=== PATIENT | female | born 1985 | race Two or more races ===

== ENCOUNTER → 2018-06-08 | Outpatient (CLI) | payer BC ==
[2018-06-08 11:06] LABS: Basophils # (auto) 0 uL; Basophils % (auto) 0.7 % (0.0-2.0); Eosinophils # (auto) 0.1 uL; Eosinophils % (auto) 2.2 % (0.0-7.0); Hematocrit 39.2 % (36.0-46.0); Hemoglobin 13.3 g/dL (12.2-16.2); Lymphocytes # (auto) 1.2 uL; Lymphocytes % (auto) 25.3 % (10.0-50.0); Mean Corpuscular Hemoglobin 29.5 pg (28.0-32.0); Mean Corpuscular Hgb Conc. 33.9 g/dL (32.0-36.0); Monocytes # (auto) 0.3 uL; Monocytes % (auto) 5.8 % (0.0-12.0); Neutrophils # (auto) 3.3 uL; Platelet Count (auto) 170 10^3/uL (140-450); Red Blood Cells 4.51 10^6/uL (4.0-5.20); Red Cell Distribution Width 13.4 % (11.8-14.3); White Blood Cell 4.9 10^3/uL (4.4-10.8)
[2018-06-08 11:14] LABS: Urine Bacteria NONE SEEN /hpf (None Seen); Urine Blood Negative /uL (Negative); Urine Mucus FEW (None Seen); Urine Specific Gravity 1.015 (1.001-1.035); Urine WBC 1 /hpf (0 - 5)
[2018-06-08 12:16] LABS: Free T4 (Free Thyroxine) 1.08 ng/dL (0.89-1.76)
[2018-06-08 12:17] LABS: Free T3 3.11 pg/mL (2.3-4.2); T3 Total 1.35 ng/mL (0.60-1.81)
[2018-06-08 12:18] LABS: Folate (Folic Acid) 12.07 ng/mL (5.38-24)
[2018-06-08 12:19] LABS: Albumin 3.9 g/dL (3.4-5.0); BUN/Creatinine Ratio 18.2; Bilirubin, Total 0.2 mg/dL (0.2-1.0); Calcium 8.4 mg/dL (8.5-10.1); Magnesium 2.1 mg/dL (1.6-2.6); Phosphorus 3.3 mg/dL (2.5-4.90); Potassium 4.3 mmol/L (3.5-5.1); Total Protein 7.5 g/dL (6.4-8.2); Uric Acid 3.3 mg/dL (2.6-6.0)
[2018-06-12 08:06] LABS: IgE Mouse Urine <0.10 kU/L (Class 0)
== END | disposition home or self-care (01) ==
LOC: LAB 10:39
DX: Z76.89 Persons encountering health services in other specified circumstances (principal)
CPT/HCPCS: 36415; 80053; 80061; 81001; 82306; 82607; 82746; 82785; 83036; 83735; 84100; 84439; 84443; 84480; 84481; 84550; 85025; 87086

== ENCOUNTER → 2018-07-03 | Outpatient (CLI) | payer BC ==
[2018-07-06 12:07] LABS: IgE Mouse Urine <0.10 kU/L (Class 0)
== END | disposition home or self-care (01) ==
LOC: LAB 14:29
DX: T78.40XA Allergy, unspecified, initial encounter (principal)
CPT/HCPCS: 82785

== ENCOUNTER → 2020-06-10 | Outpatient (CLI) | payer OTHER | END | disposition home or self-care (01) | LOC: LAB 15:21 | PROVIDERS: ATTEND Nurse Practitioner Family | DX: Z20.828 Contact with and (suspected) exposure to other viral communicable diseases (principal) ==

== ENCOUNTER → 2023-06-07 | Outpatient (CLI) | payer BC ==
[2023-06-07 07:27] LABS: Basophils # (auto) 0 10 ^3/uL (0-0.2); Basophils % (auto) 0.5 % (0.0-2.0); Eosinophils # (auto) 0.1 10 ^3/uL (0-0.8); Eosinophils % (auto) 1.3 % (0.0-7.0); Hematocrit 33.5 % (36.0-46.0); Hemoglobin 11.3 g/dL (12.2-16.2); Lymphocytes # (auto) 1.5 10 ^3/uL (0.4-5.4); Lymphocytes % (auto) 18.2 % (10.0-50.0); Mean Corpuscular Hemoglobin 29.4 pg (28.0-32.0); Mean Corpuscular Hgb Conc. 33.8 g/dL (32.0-36.0); Mean Corpuscular Volume 86.9 fL (80.0-100.0); Monocytes # (auto) 0.5 10 ^3/uL (0-1.3); Monocytes % (auto) 6.6 % (0.0-12.0); Neutrophils # (auto) 5.9 10 ^3/uL (1.6-8.6); Neutrophils % (auto) 73.4 % (37.0-80.0); Red Blood Cells 3.85 10^6/uL (4.0-5.20); Red Cell Distribution Width 14.2 % (11.8-14.3)
== END | disposition home or self-care (01) ==
LOC: LAB 07:12
PROVIDERS: ATTEND Obstetrics & Gynecology
DX: Z34.00 Encounter for supervision of normal first pregnancy, unspecified trimester (principal); Z3A.00 Weeks of gestation of pregnancy not specified
CPT/HCPCS: 36415; 82951; 85025; 86850; 86900; 86901

== ENCOUNTER 2023-06-28 09:13 | Observation (INO) | payer BC ==
[~2023-06-28] VITALS: Ht 152.4 cm; Wt 67.6 kg
[2023-06-28] MEDS ORDERED: PREN1TAB71 OR (10:34)
== END 2023-06-28 10:45 | disposition home or self-care (01) ==
LOC: LDRP 09:13 → UNDOADMOB 09:13 → LDRP 09:14 → UNDODISOB 10:45
PROVIDERS: ADMIT Obstetrics & Gynecology; ATTEND Obstetrics & Gynecology
DX: O26.893 Other specified pregnancy related conditions, third trimester (principal); N23 Unspecified renal colic; O09.513 Supervision of elderly primigravida, third trimester; Z3A.32 32 weeks gestation of pregnancy
CPT/HCPCS: 59025; 81002; 94760; G0378

== ENCOUNTER → 2023-07-24 | Outpatient (CLI) | payer BC ==
[~2023-07-24] MED LIST: PREN1TAB71 OR
[2023-07-24 12:07] LABS: Basophils # (auto) 0 10 ^3/uL (0-0.2); Basophils % (auto) 0.3 % (0.0-2.0); Eosinophils # (auto) 0.1 10 ^3/uL (0-0.8); Eosinophils % (auto) 1.3 % (0.0-7.0); Hematocrit 35.4 % (36.0-46.0); Lymphocytes # (auto) 1.1 10 ^3/uL (0.4-5.4); Lymphocytes % (auto) 14.9 % (10.0-50.0); Mean Corpuscular Hgb Conc. 33.9 g/dL (32.0-36.0); Mean Corpuscular Volume 85.5 fL (80.0-100.0); Monocytes # (auto) 0.5 10 ^3/uL (0-1.3); Monocytes % (auto) 6.2 % (0.0-12.0); Neutrophils % (auto) 77.3 % (37.0-80.0); Nucleated Red Blood Cells % 0.1 %; Red Blood Cells 4.14 10^6/uL (4.0-5.20); Red Cell Distribution Width 14.2 % (11.8-14.3); White Blood Cell 7.7 10^3/uL (4.4-10.8)
[2023-07-24 12:26] LABS: Amphetamine Screen, Urine Neg (NEGATIVE)
[2023-07-24 12:28] LABS: Barbiturate Scree,Urine Neg (NEGATIVE); Benzodiazephine Screen, Urine Neg (NEGATIVE); Cocaine Screen, Urine Neg (NEGATIVE); Opiate Scree,Urine Neg (NEGATIVE)
[2023-07-24 12:29] LABS: Cannabinoid Screen, Urine Neg (NEGATIVE); Phencyclidine Screen, Urine Neg (NEGATIVE)
[2023-07-25 07:06] LABS: RPR Non Reactive (Non Reactive)
[2023-07-25 10:06] LABS: Treponema Pallidum Ab LC Non Reactive (Non Reactive)
== END | disposition home or self-care (01) ==
LOC: LAB 11:34
PROVIDERS: ATTEND Obstetrics & Gynecology
DX: Z34.00 Encounter for supervision of normal first pregnancy, unspecified trimester (principal); Z3A.00 Weeks of gestation of pregnancy not specified
CPT/HCPCS: 36415; 80307; 84112; 85025; 86592

== ENCOUNTER → 2023-07-25 | Outpatient (CLI) | payer BC | END | disposition home or self-care (01) | LOC: LAB 15:24 | PROVIDERS: ATTEND Obstetrics & Gynecology | DX: Z34.80 Encounter for supervision of other normal pregnancy, unspecified trimester (principal); Z3A.00 Weeks of gestation of pregnancy not specified | CPT/HCPCS: 87081 ==

== ENCOUNTER 2023-08-15 11:17 | Inpatient (IN) | payer BC ==
[~2023-08-15] VITALS: Ht 152.4 cm; Wt 68.5 kg
[2023-08-15] MEDS ORDERED: PHISODERM TOP SOLN 240ML BTL TOP PRN (11:45)
[2023-08-15] MEDS ORDERED: PROMETHAZINE HCL 25 MG/ML 1ML IM PRN (11:45)
[2023-08-15] MEDS ORDERED: LIDOCAINE 2%HCL (LOCAL ANESTH.) INJ 20ML MDV IJ PRN (11:45)
[2023-08-15] MEDS ORDERED: PROMETHAZINE HCL 25 MG/ML 1ML IV PRN (11:45)
[2023-08-15] MEDS ORDERED: LACT. RINGERS/OXYTOCIN 20UNITS 500 ML IV ONE ×2 (11:45→12:15)
[2023-08-15 12:23] LABS: Urine Bacteria FEW /hpf (None Seen); Urine Blood 1+ /uL (Negative); Urine Clarity HAZY (Clear); Urine Color Yellow (Yellow); Urine Protein, UAD Negative (Negative); Urine Specific Gravity 1.014 (1.001-1.035); Urine Urobilinogen Normal (Negative); Urine WBC 3 /hpf (0 - 5); Urine pH 6.5 (5.0-8.0)
[2023-08-15 12:30] LABS: INR 0.91 (0.9-1.15); Partial Thromboplastin Time 28.9 SEC (24.5-34.5); Prothrombin Time 9.6 sec (9.3-11.8)
[2023-08-15 12:35] LABS: Amphetamine Screen, Urine Neg (NEGATIVE)
[2023-08-15 12:37] LABS: Alanine Aminotransferase 13 U/L (7-40); Alkaline Phosphatase 127 U/L (46-116); Anion Gap 6 (5-15); Aspartate Aminotransferase 15 U/L (13-40); Blood Urea Nitrogen 9 mg/dL (9-23); Calcium 8.3 mg/dL (8.5-10.1); Carbon Dioxide 22 mmol/L (20-30); Chloride 103 mmol/L (98-107); Glucose 72 mg/dL (74-106); Potassium 3.5 mmol/L (3.5-5.1); Sodium 131 mmol/L (136-145)
[2023-08-15 12:37] LABS: Barbiturate Scree,Urine Neg (NEGATIVE); Benzodiazephine Screen, Urine Neg (NEGATIVE); Cannabinoid Screen, Urine Neg (NEGATIVE); Cocaine Screen, Urine Neg (NEGATIVE); Opiate Scree,Urine Neg (NEGATIVE); Phencyclidine Screen, Urine Neg (NEGATIVE)
[2023-08-15 12:38] LABS: Albumin 3.5 g/dL (3.2-4.8); Total Protein 5.6 g/dL (5.7-8.2)
[2023-08-15 12:48] LABS: Basophils # (auto) 0 10 ^3/uL (0-0.2); Basophils % (auto) 0.3 % (0.0-2.0); Eosinophils # (auto) 0.1 10 ^3/uL (0-0.8); Eosinophils % (auto) 0.6 % (0.0-7.0); Hematocrit 33.9 % (36.0-46.0); Hemoglobin 11.5 g/dL (12.2-16.2); Lymphocytes # (auto) 1.5 10 ^3/uL (0.4-5.4); Lymphocytes % (auto) 16.9 % (10.0-50.0); Mean Corpuscular Hemoglobin 29.1 pg (28.0-32.0); Mean Corpuscular Hgb Conc. 33.9 g/dL (32.0-36.0); Mean Corpuscular Volume 85.7 fL (80.0-100.0); Monocytes # (auto) 0.6 10 ^3/uL (0-1.3); Monocytes % (auto) 7.1 % (0.0-12.0); Neutrophils # (auto) 6.8 10 ^3/uL (1.6-8.6); Neutrophils % (auto) 75.1 % (37.0-80.0); Red Blood Cells 3.95 10^6/uL (4.0-5.20); Red Cell Distribution Width 14.5 % (11.8-14.3); White Blood Cell 9.1 10^3/uL (4.4-10.8)
[2023-08-15 13:05] LABS: Bilirubin, Total 0.5 mg/dL (0.2-1.0)
[2023-08-15] MEDS ORDERED: METHYLERGONOVINE MALEATE 0.2 MG/ML AMP IM PRN (14:30)
[2023-08-15] MEDS ORDERED: diphenhdrAMINE HCL 50 MG/1 ML VL IV PRN (14:30)
[2023-08-15] MEDS ORDERED: miSOPROStol 100 mcg TAB SL PRN (14:30)
[2023-08-15] MEDS ORDERED: MINERAL OIL TOPICAL 10ml TOP PRN (14:30)
[2023-08-15] MEDS ORDERED: ACETAMINOPHEN 325 MG TAB PO PRN (14:30)
[2023-08-15] MEDS ORDERED: fentaNYL CITRATE 100 MCG/2 ML VL IV PRN (14:30)
[2023-08-15] MEDS ORDERED: CARBOPROST TROMETHAMINE 250 MCG/1ML VIAL IM PRN (14:30)
[2023-08-15] MEDS ORDERED: TRANEXAMIC ACID 1,000 MG in SODIUM CHL 0.9% 100 ML IV PRN (14:30)
[2023-08-15] MEDS ORDERED: ONDANSETRON HCL 4 MG/2 ML VIAL IV PRN (14:30)
[2023-08-15] MEDS: LACTATED RINGER'S 1,000 ML IV SCH ×2 (17:24→19:45)
[2023-08-15] MEDS ORDERED: DIPHENOXYLATE W/ATROPINE 2.5 MG TAB PO SCH (18:00)
[2023-08-16] MEDS ORDERED: ceFAZolin 1GM/50ML 50 ML IV SCH (03:30)
[2023-08-16] MEDS: LACTATED RINGER'S 1,000 ML IV SCH ×2 (03:45→11:45)
[2023-08-16 06:06] LABS: RPR Non Reactive (Non Reactive)
[2023-08-16] MEDS: miSOPROStol 50 MCG per PRE-CUT 1/2 TAB PO PRN ×2 (06:14→10:57)
[2023-08-16] MEDS: ceFAZolin 1GM/50ML 50 ML IV SCH ×2 (10:57→19:10)
[2023-08-16] MEDS ORDERED: LACTATED RINGER'S 1,000 ML IV ONE (12:15)
[2023-08-16] MEDS ORDERED: NALOXONE HCL 0.4 MG/ML VIAL IV ONE (12:15)
[2023-08-16] MEDS ORDERED: ROPIVACAINE HCL 200 ML EPI SCH (12:15)
[2023-08-16] MEDS ORDERED: ePHEDrine SULFATE 50 MG/ML AMP IV ONE (12:15)
[2023-08-16] MEDS ORDERED: METHYLERGONOVINE MALEATE 0.2 MG/ML AMP IM ONE (17:58)
[2023-08-16] MEDS ORDERED: ACETAMINOPHEN 325 MG TAB PO PRN (20:30)
[2023-08-16] MEDS ORDERED: ONDANSETRON HCL 4 MG/2 ML VIAL IV PRN (20:30)
[2023-08-16] MEDS ORDERED: ACETAMINOPHEN 500 MG TAB PO PRN (20:45)
[2023-08-16] MEDS: DOCUSATE SOD 100 MG CAP PO SCH (22:49)
[2023-08-16] MEDS: IBUPROFEN 600 MG TAB PO PRN (22:49)
[2023-08-16 22:52] VITALS: BP 129/83; PULSE 88; RESP 16; TEMP 97.7; O2SAT 97
[2023-08-17 03:00] VITALS: BP 133/80; PULSE 86; RESP 18; TEMP 97.7; O2SAT 98
[2023-08-17] MEDS: ceFAZolin 1GM/50ML 50 ML IV SCH ×3 (03:13→18:51)
[2023-08-17 07:00] VITALS: BP 126/75; PULSE 91; RESP 18; TEMP 97.7; O2SAT 97
[2023-08-17] MEDS: WITCH HAZEL-GLYCERIN PAD TOP PRN (09:06)
[2023-08-17] MEDS: IBUPROFEN 600 MG TAB PO PRN ×2 (09:06→18:50)
[2023-08-17] MEDS ORDERED: ceFAZolin 1GM VL ONE (10:44)
[2023-08-17 11:00] VITALS: BP 114/66; PULSE 98; RESP 16; TEMP 98; O2SAT 98
[2023-08-17 15:00] VITALS: BP 116/71; PULSE 79; RESP 16; TEMP 98.3; O2SAT 97
[2023-08-17 18:50] VITALS: BP 125/74; PULSE 86; RESP 16; TEMP 97.6; O2SAT 96
[2023-08-17 20:06] LABS: Treponema pallidum Ab (FTA-Ab) Non Reactive (Non Reactive)
[2023-08-17] MEDS: DOCUSATE SOD 100 MG CAP PO SCH (22:14)
[2023-08-17 22:50] VITALS: BP 122/78; PULSE 77; RESP 17; TEMP 97.7; O2SAT 97
[2023-08-18] MEDS: IBUPROFEN 600 MG TAB PO PRN (02:32)
[2023-08-18] MEDS: ceFAZolin 1GM/50ML 50 ML IV SCH (02:32)
[2023-08-18 02:50] VITALS: BP 120/77; PULSE 82; RESP 17; TEMP 97.8; O2SAT 96
[2023-08-18 06:39] VITALS: BP 119/81; PULSE 74; RESP 18; TEMP 97.8
[2023-08-18] MEDS: DERMOPLAST 60ML BOTTLE TOP PRN ×2 (10:40→11:25)
[2023-08-18] MEDS: WITCH HAZEL-GLYCERIN PAD TOP PRN ×2 (10:40→11:25)
== END 2023-08-18 11:45 | disposition home or self-care (01) | DRG 807 ==
LOC: LDRP 11:17
PROVIDERS: ADMIT Obstetrics & Gynecology; ATTEND Obstetrics & Gynecology
PROC: 10E0XZZ Delivery of Products of Conception, External Approach (ICD-10-PCS; principal; 2023-08-16)
PROC: 0KQM0ZZ Repair Perineum Muscle, Open Approach (ICD-10-PCS; 2023-08-16)
PROC: 3E0R3BZ Introduction of Anesthetic Agent into Spinal Canal, Percutaneous Approach (ICD-10-PCS; 2023-08-16)
PROC: 00HU33Z Insertion of Infusion Device into Spinal Canal, Percutaneous Approach (ICD-10-PCS; 2023-08-16)
DX: O70.1 Second degree perineal laceration during delivery (principal); Z37.0 Single live birth; Z3A.39 39 weeks gestation of pregnancy
CPT/HCPCS: 36415; 59025; 59409; 62282; 80053; 80307; 81001; 81002; 85025; 85610; 85730; 86592; 86850; 86870; 86900; 86901; 87086; 94760; 96360; 96361; 96365; 96366; G0378; J0690; J2590

== ENCOUNTER → 2024-05-03 | Outpatient (CLI) | payer BC ==
[2024-05-03 12:50] LABS: Basophils # (auto) 0 10 ^3/uL (0-0.2); Basophils % (auto) 0.5 % (0.0-2.0); Eosinophils # (auto) 0.2 10 ^3/uL (0-0.8); Eosinophils % (auto) 2.1 % (0.0-7.0); Hematocrit 38.2 % (36.0-46.0); Hemoglobin 13.1 g/dL (12.2-16.2); Lymphocytes # (auto) 1.9 10 ^3/uL (0.4-5.4); Lymphocytes % (auto) 26.3 % (10.0-50.0); Mean Corpuscular Hemoglobin 29.4 pg (28.0-32.0); Mean Corpuscular Hgb Conc. 34.3 g/dL (32.0-36.0); Mean Corpuscular Volume 85.8 fL (80.0-100.0); Monocytes # (auto) 0.4 10 ^3/uL (0-1.3); Monocytes % (auto) 5.1 % (0.0-12.0); Neutrophils # (auto) 4.8 10 ^3/uL (1.6-8.6); Nucleated Red Blood Cells % 0.1 %; Red Blood Cells 4.45 10^6/uL (4.0-5.20); Red Cell Distribution Width 13.7 % (11.8-14.3); White Blood Cell 7.3 10^3/uL (4.4-10.8)
[2024-05-03 13:10] LABS: RBC Morphology Normal
[2024-05-03 13:11] LABS: Platelet Estimate Decrea
[2024-05-03 13:18] LABS: % Iron Saturation 22.4 % (15-50)
[2024-05-03 13:20] LABS: Alanine Aminotransferase 16 U/L (7-40); Albumin 4.3 g/dL (3.2-4.8); Alkaline Phosphatase 59 U/L (46-116); Anion Gap 5 (5-15); Aspartate Aminotransferase 10 U/L (13-40); BUN/Creatinine Ratio 21.9 (10.0-20.0); Bilirubin, Total 0.6 mg/dL (0.2-1.0); Blood Urea Nitrogen 14 mg/dL (9-23); CRP High Sensitivity 0.44 mg/dL (<1.0); Calcium 8.9 mg/dL (8.5-10.1); Carbon Dioxide 27 mmol/L (20-30); Chloride 107 mmol/L (98-107); Glucose 87 mg/dL (74-106); Potassium 3.8 mmol/L (3.5-5.1); Sodium 139 mmol/L (136-145); Total Protein 6.7 g/dL (5.7-8.2)
[2024-05-04 12:06] LABS: Insulin 5.3 uIU/mL (2.6-24.9)
== END | disposition home or self-care (01) ==
LOC: LAB 12:20
PROVIDERS: ATTEND Family Medicine
DX: Z00.00 Encounter for general adult medical examination without abnormal findings (principal)
CPT/HCPCS: 36415; 80053; 82306; 82626; 83525; 83540; 83550; 84144; 84403; 85025; 86141

== ENCOUNTER → 2024-05-06 | Outpatient (CLI) | payer BC ==
[2024-05-06 07:53] LABS: Basophils # (auto) 0 10 ^3/uL (0-0.2); Basophils % (auto) 0.6 % (0.0-2.0); Eosinophils # (auto) 0.1 10 ^3/uL (0-0.8); Eosinophils % (auto) 2.5 % (0.0-7.0); Hematocrit 38.7 % (36.0-46.0); Hemoglobin 13.4 g/dL (12.2-16.2); Lymphocytes # (auto) 1.7 10 ^3/uL (0.4-5.4); Lymphocytes % (auto) 30.8 % (10.0-50.0); Mean Corpuscular Hemoglobin 29.3 pg (28.0-32.0); Mean Corpuscular Hgb Conc. 34.5 g/dL (32.0-36.0); Mean Corpuscular Volume 84.8 fL (80.0-100.0); Monocytes # (auto) 0.3 10 ^3/uL (0-1.3); Neutrophils # (auto) 3.2 10 ^3/uL (1.6-8.6); Neutrophils % (auto) 60.1 % (37.0-80.0); Red Blood Cells 4.57 10^6/uL (4.0-5.20); Red Cell Distribution Width 13.4 % (11.8-14.3); White Blood Cell 5.4 10^3/uL (4.4-10.8)
[2024-05-06 08:05] LABS: Urine Bacteria FEW /hpf (None Seen); Urine Blood TRACE /uL (Negative); Urine Clarity Clear (Clear); Urine Color Yellow (Yellow); Urine Mucus FEW (None Seen); Urine Protein, UAD TRACE (Negative); Urine Specific Gravity 1.029 (1.001-1.035); Urine Urobilinogen Normal (Negative); Urine WBC 2 /hpf (0 - 5); Urine pH 6.5 (5.0-9.0)
[2024-05-06 08:32] LABS: CRP High Sensitivity 0.51 mg/dL (<1.0)
[2024-05-06 09:00] LABS: Uric Acid 5.5 mg/dL (3.1-7.8)
[2024-05-06 09:05] LABS: % Iron Saturation 47.1 % (15-50)
[2024-05-06 09:21] LABS: Free T4 (Free Thyroxine) 1.21 ng/dL (0.89-1.76)
[2024-05-06 09:25] LABS: T3 Total 1.16 ng/mL (0.60-1.81)
[2024-05-06 09:27] LABS: Free T3 3.35 pg/mL (2.3-4.2)
[2024-05-06 10:27] LABS: Folate (Folic Acid) 23.53 ng/mL (>5.38)
[2024-05-07 08:06] LABS: Estradiol 49.5 pg/mL (.); Insulin 6.3 uIU/mL (2.6-24.9)
== END | disposition home or self-care (01) ==
LOC: LAB 06:54
PROVIDERS: ATTEND Family Medicine
DX: Z00.00 Encounter for general adult medical examination without abnormal findings (principal); K64.9 Unspecified hemorrhoids; K59.01 Slow transit constipation; D22.9 Melanocytic nevi, unspecified
CPT/HCPCS: 36415; 80061; 81001; 82306; 82607; 82626; 82670; 82746; 83036; 83525; 83540; 83550; 84144; 84403; 84439; 84480; 84481; 84550; 85025; 86141; 87086